=== PATIENT | female | born 1990 | race Caucasian/White ===

== ENCOUNTER 2019-08-14 11:11 | Emergency (ER) | payer OTHER ==
[~2019-08-14] VITALS: Ht 165.1 cm; Wt 68.0 kg
--- NOTE | 2019-08-14 11:11 | NUR ---
PATIENT BIBA TO BED 9 AT THIS TIME.
[2019-08-14 11:18] VITALS: BP 131/83
--- NOTE | 2019-08-14 11:20 | NUR ---
BIBA C/O L ANKLE PAIN X TODAY POST TWISTED ANKLE WHILE STEPPING OUT FROM VAN +CMS. ICE PACK APPLIED TO SITE. +ROM WITH PAIN. PAIN /. NO DEFORMITY NOTED. PT ALERT AND AWAKE, FAMILY ON THE WAY PMH- ANXIETY, DEPRESSION, MENTAL DELAY
--- NOTE | 2019-08-14 11:57 | NUR ---
CAREGIVER AT BEDSIDE,
--- NOTE | 2019-08-14 11:58 | NUR ---
DR RUBIO AT BEDSIDE
[2019-08-14] MEDS ORDERED: IBUPROFEN 400 MG TAB PO ONE (12:05)
--- NOTE | 2019-08-14 12:47 | NUR ---
PAIN 10 , NADR
--- NOTE | 2019-08-14 12:54 | NUR ---
ANKLE STIRRUP AND CRUTCHES DEMONSTRATED BY [facility] EMT. PULSES WNL. PT VERBALIZED UNDERSTANING
[2019-08-14 12:55] VITALS: BP 110/80
--- NOTE | 2019-08-14 12:55 | NUR ---
Patient discharged with v/s stable. Written and verbal after care instructions given and explained REGARDING STRAIN. Patient verbalized understanding. Ambulatory with steady gait. All questions addressed prior to discharge. Advised to follow up with PMD. INSTRUCTED TO TAKE OTC TYLENOL PRN PAIN AND INFLAMMATION
== END 2019-08-14 12:55 | disposition home or self-care (01) ==
LOC: MED 11:11
DX: S93.402A Sprain of unspecified ligament of left ankle, initial encounter (principal); F41.9 Anxiety disorder, unspecified; F32.9 Major depressive disorder, single episode, unspecified; X50.1XXA Overexertion from prolonged static or awkward postures, initial encounter; Y93.89 Activity, other specified; Y92.89 Other specified places as the place of occurrence of the external cause; Y99.8 Other external cause status
CPT/HCPCS: 29515; 73610; 99283; Q0092